=== PATIENT | female | born 1995 | race Caucasian/White ===

== ENCOUNTER 2023-03-19 08:00 | Outpatient (CLI) | payer OTHER ==
[2023-03-19 18:55] LABS: BACTERIAL VAGINOSIS DNA NEGATIVE (NEGATIVE); CANDIDA GLABRATA DNA NEGATIVE (NEGATIVE); CANDIDA GROUP DNA POSITIVE (NEGATIVE); CANDIDA KRUSEI DNA NEGATIVE (NEGATIVE); TRICHOMONAS VAGINALIS DNA NEGATIVE (NEGATIVE)
== END 2023-03-19 23:59 | disposition home or self-care (01) ==
LOC: LAB.WC 08:00
PROVIDERS: ATTEND Obstetrics & Gynecology
DX: N90.89 Other specified noninflammatory disorders of vulva and perineum (principal)
CPT/HCPCS: 81514

== ENCOUNTER 2023-03-19 10:27 | Outpatient (CLI) | payer OTHER ==
[2023-03-19 11:10] LABS: THYROID STIMULATING HORMONE 1.64 uIU/mL (0.34-5.60)
[2023-03-19 11:16] LABS: PROLACTIN 7.97 ng/mL
[2023-03-19 13:25] LABS: ESTIMATED AVERAGE GLUCOSE 88 mg/dL (70-100); HEMOGLOBIN A1c% 4.7 % (4.27-6.07)
[2023-03-23 14:08] LABS: FREE TESTOSTERONE(DIRECT) 7.5 pg/mL (0.0-4.2)
== END 2023-03-19 10:28 | disposition home or self-care (01) ==
LOC: LAB 10:27
PROVIDERS: ATTEND Obstetrics & Gynecology
DX: N90.89 Other specified noninflammatory disorders of vulva and perineum (principal); L68.0 Hirsutism; L70.0 Acne vulgaris; L65.9 Nonscarring hair loss, unspecified
CPT/HCPCS: 36415; 83036; 84143; 84146; 84402; 84403; 84443

== ENCOUNTER 2023-05-31 11:25 | Emergency (ER) | payer OTHER ==
[2023-05-31 11:51] VITALS: BP 115/71; O2SAT 99
[2023-05-31] MEDS ORDERED: SULFACETAMIDE 10% OPHTH DROPS EACHEYE STA (12:02)
--- NOTE | 2023-05-31 12:14 | ED Physician Documentation ---
PD HPI OPHTHO - Stated complaint Stated Complaint: RT EYE IRRITATION - Chief complaint Chief Complaint: Heent - History obtained from History obtained from: Patient - Additional information Additional information: 27-year-old female presents for red eye, irritation, greenish discharge for 2 days. It is become progressively worse and so she is concerned she may have pinkeye and is presenting for evaluation.She does not wear glasses or contacts, vision is unchanged. Review of Systems Constitutional: denies: Fever, Chills Eyes: reports: Discharge, Irritation. denies: Loss of vision, Decreased vision, Photophobia Throat: denies: Dental pain / toothache, Oral lesions / sores, Sore throat Cardiac: denies: Chest pain / pressure, Palpitations Respiratory: denies: Dyspnea, Cough, Wheezing GI: denies: Abdominal Pain, Nausea, Vomiting Neurologic: denies: Generalized weakness, Focal weakness, Numbness PD PAST MEDICAL HISTORY - Past Medical History Past Medical History: Yes Musculoskeletal: Fibromyalgia - Past Surgical History Past Surgical History: Yes Ortho: Knee replacement - Allergies Allergies/Adverse Reactions: Allergies Allergy/AdvReac Type Severity Reaction Status Date / Time Latex, Natural Rubber Allergy Hives Verified 05/31/23 11:50 rizatriptan [From Maxalt] Allergy Anaphylaxis Verified 05/31/23 11:50 - Social History Does the pt smoke?: No Smoking Status: Never smoker PD ED PE NORMAL - Vitals Vital signs reviewed: Yes - General General: Alert and oriented X 3, No acute distress, Well developed/nourished - HEENT HEENT: Atraumatic, PERRL, EOMI, Other (conjunctival injection with green-yellow discharge at corner of R eye) - Respiratory Respiratory: No respiratory distress - Derm Derm: Normal color, Warm and dry, No rash - Extremities Extremities: No deformity, No tenderness to palpate, Normal ROM s pain - Neuro Neuro: Alert and oriented X 3, authorization manager 2-12 intact, No motor deficit, Normal speech - Psych Psych: Normal mood, Normal affect Results - Vitals Vitals: Vital Signs - 24 hr 05/31/23 11:46 Temperature 36.8 C Heart Rate 64 Respiratory 18 Rate Blood Pressure 115/71 O2 Saturation 99 PD Medical Decision Making - ED course Complexity details: reviewed results, re-evaluated patient, considered differential, d/w patient ED course: Presumed bacterial conjunctivitis. Given antibiotic drops. Counseled against using make-up, touching eyes, rubbing eyes. Recommended follow-up with PCP or eye doctor. ED return precautions discussed. Departure - Departure Disposition: 01 Home, Self Care Clinical Impression: Bacterial conjunctivitis of both eyes Condition: Stable Instructions: ED Conjunctivitis Bacterial Comments: Place 1 to 2 drops into your eyes every 2-3 hours for 5 days Forms: PCP List Discharge Date/Time: 05/31/23 12:17
== END 2023-05-31 12:17 | disposition home or self-care (01) ==
LOC: ED 11:25
DX: H10.89 Other conjunctivitis (principal)
CPT/HCPCS: 99282; 99283; A9270

== ENCOUNTER 2023-06-11 08:00 | Outpatient (CLI) | payer OTHER ==
[2023-06-11 22:08] LABS: BACTERIAL VAGINOSIS DNA NEGATIVE (NEGATIVE); CANDIDA GLABRATA DNA NEGATIVE (NEGATIVE); CANDIDA GROUP DNA POSITIVE (NEGATIVE); CANDIDA KRUSEI DNA NEGATIVE (NEGATIVE); TRICHOMONAS VAGINALIS DNA NEGATIVE (NEGATIVE)
== END 2023-06-11 23:59 | disposition home or self-care (01) ==
LOC: LAB.WC 08:00
PROVIDERS: ATTEND Nurse Practitioner
DX: N89.8 Other specified noninflammatory disorders of vagina (principal)
CPT/HCPCS: 81514

== ENCOUNTER 2023-06-17 14:28 | Outpatient (CLI) | payer OTHER ==
[2023-06-17 18:10] LABS: BACTERIAL VAGINOSIS DNA NEGATIVE (NEGATIVE); CANDIDA GLABRATA DNA NEGATIVE (NEGATIVE); CANDIDA GROUP DNA NEGATIVE (NEGATIVE); CANDIDA KRUSEI DNA NEGATIVE (NEGATIVE); TRICHOMONAS VAGINALIS DNA NEGATIVE (NEGATIVE)
== END 2023-06-17 14:29 | disposition home or self-care (01) ==
LOC: LAB 14:28
PROVIDERS: ATTEND Nurse Practitioner
DX: L29.8 Other pruritus (principal)
CPT/HCPCS: 81514